=== PATIENT | female | born 1980 | race Caucasian/White ===

== ENCOUNTER 2016-08-21 04:30 | Emergency (ER) | payer SELFPAY ==
[~2016-08-21] VITALS: Ht 157.5 cm; Wt 68.5 kg
[~2016-08-21 04:30] MED LIST: ALPR-475 PO; BUSP10TA PO
== END 2016-08-21 06:07 | disposition home or self-care (01) ==
LOC: ED 05:39
DX: J01.00 Acute maxillary sinusitis, unspecified (principal); Z90.49 Acquired absence of other specified parts of digestive tract; E87.6 Hypokalemia
CPT/HCPCS: 99283

== ENCOUNTER 2018-02-18 18:17 | Emergency (ER) | payer MEDICAID ==
[~2018-02-18] VITALS: Ht 157.5 cm; Wt 75.5 kg
[2018-02-18 18:23] VITALS: BP 135/87
== END 2018-02-18 19:46 | disposition home or self-care (01) ==
LOC: ED 19:40
DX: J03.90 Acute tonsillitis, unspecified (principal); F17.200 Nicotine dependence, unspecified, uncomplicated
CPT/HCPCS: 87081; 87880; 99284

== ENCOUNTER 2018-04-20 22:54 | Emergency (ER) | payer MEDICAID ==
[~2018-04-20] VITALS: Ht 165.1 cm; Wt 75.2 kg
[2018-04-20 22:56] VITALS: BP 128/81
[2018-04-20] MEDS ORDERED: METHOCARBAMOL 750 MG TABLET PO ONE (23:30)
[2018-04-20] MEDS ORDERED: IBUPROFEN 200 MG TABLET PO ONE (23:30)
[2018-04-20] MEDS ORDERED: METHOCARBAMOL 750 MG TABLET ONE (23:43)
[2018-04-20] MEDS ORDERED: IBUPROFEN 800 MG TABLET ONE (23:43)
--- NOTE | 2018-04-20 23:53 | NUR ---
PT PRESENTS TO ED WITH C/O RIGHT EAR FULLNESS, AND RIGHT SIDED HEADACHE X 2 DAYS. NEURO INTACT. EQUAL CULTURIST BILATERALLY, NO DRIFT. PT A&OX4, RESPS EVEN AND UNLABORED. PT SPEAKING CLEARLY IN FULL SENTENCES. PT MEDICATED PER EMAR, TOLERATED WELL. EXAM INCLUDING EAR EXAM DONE BY EDMD. AWAITING DC PAPERWORK FROM MD AT THIS TIME.
--- NOTE | 2018-04-21 00:07 | NUR ---
PT GIVEN DC INSTRUCTIONS AND SCRIPT. PT EDUCATED REGARDING ROBAXAN AND MOTRIN RX. PT A&O, RESPS EVEN AND UNLABORED. NADN AT DC. PT AMB TO DC DESK WITH STEADY GAIT.
== END 2018-04-21 00:08 | disposition home or self-care (01) ==
LOC: ED 23:38
DX: G44.319 Acute post-traumatic headache, not intractable (principal); K21.9 Gastro-esophageal reflux disease without esophagitis; F17.200 Nicotine dependence, unspecified, uncomplicated
CPT/HCPCS: 99283

== ENCOUNTER 2018-07-21 05:21 | Emergency (ER) | payer MEDICAID ==
[~2018-07-21] VITALS: Ht 157.5 cm; Wt 75.0 kg
[2018-07-21 05:23] VITALS: BP 113/82
--- NOTE | 2018-07-21 06:12 | NUR ---
PT AMBULATED FROM LOBBY TO ROOM WITH STEADY GAIT.
[2018-07-21] MEDS ORDERED: hydrOXyzine 50MG TABLET PO ONE (06:30)
[2018-07-21] MEDS ORDERED: FAMOTIDINE 20 MG TABLET ONE (06:30)
[2018-07-21] MEDS ORDERED: FAMOTIDINE 20 MG TABLET PO ONE (06:30)
--- NOTE | 2018-07-21 06:51 | NUR ---
PT MEDICATED PER MAR.
--- NOTE | 2018-07-21 06:52 | NUR ---
REPORT OF PT TO LISBETH VO. ALL QUESTIONS ANSWERED
--- NOTE | 2018-07-21 07:01 | NUR ---
Pt resting on alexandr. ELSY. No needs expressed. Will dc pt when dc paperwork ready.
--- NOTE | 2018-07-21 07:33 | NUR ---
Patient given discharge instructions and they have confirmed that they understand the instructions. Patient ambulatory with steady gait. Pt left with discharge paperwork, prescription, and all personal belongings.
== END 2018-07-21 07:37 | disposition home or self-care (01) ==
LOC: ED 06:17
DX: L50.9 Urticaria, unspecified (principal); K21.9 Gastro-esophageal reflux disease without esophagitis; Z90.49 Acquired absence of other specified parts of digestive tract; Z90.89 Acquired absence of other organs; F17.210 Nicotine dependence, cigarettes, uncomplicated
CPT/HCPCS: 99284; J7512

== ENCOUNTER 2018-07-29 15:00 | Emergency (ER) | payer MEDICAID ==
[~2018-07-29] VITALS: Ht 157.5 cm; Wt 75.0 kg
[2018-07-29] MEDS ORDERED: CYCLOBENZAPRINE 10 MG TABLET ONE (16:22)
[2018-07-29] MEDS ORDERED: HYDROcodone/APAP 5/325 TABLET ONE (16:22)
[2018-07-29] MEDS ORDERED: IBUPROFEN 800 MG TABLET ONE (16:22)
[2018-07-29] MEDS ORDERED: HYDROcodone/APAP 5/325 TABLET PO ONE (16:30)
[2018-07-29] MEDS ORDERED: IBUPROFEN 800 MG TABLET PO ONE (16:30)
[2018-07-29] MEDS ORDERED: CYCLOBENZAPRINE 10 MG TABLET PO ONE (16:30)
[2018-07-29 17:04] VITALS: BP 124/84
--- NOTE | 2018-07-29 17:05 | NUR ---
Patient/Caregiver given discharge instructions and they have confirmed that they understand the instructions. Patient ambulatory with steady gait. PAIN 05/26
== END 2018-07-29 17:07 | disposition home or self-care (01) ==
LOC: ED 17:01
DX: S13.9XXA Sprain of joints and ligaments of unspecified parts of neck, initial encounter (principal); S23.9XXA Sprain of unspecified parts of thorax, initial encounter; S40.012A Contusion of left shoulder, initial encounter; K21.9 Gastro-esophageal reflux disease without esophagitis; Z90.89 Acquired absence of other organs; Z90.49 Acquired absence of other specified parts of digestive tract; V43.51XA Car driver injured in collision with sport utility vehicle in traffic accident, initial encounter; Y93.89 Activity, other specified; Y92.89 Other specified places as the place of occurrence of the external cause; Y99.8 Other external cause status
CPT/HCPCS: 72020; 72050; 99284

== ENCOUNTER 2018-09-24 12:59 | Emergency (ER) | payer MEDICAID ==
[~2018-09-24] VITALS: Ht 160 cm; Wt 74.3 kg
[2018-09-24] MEDS ORDERED: ONDANSETRON ODT 4 MG PO ONE (13:30)
[2018-09-24 13:52] LABS: ALBUMIN 3.4 g/dL (3.4-5.0); ANION GAP 6 mmol/L (5-15); CHLORIDE 109 mmol/L (98-107)
[2018-09-24 13:56] LABS: ALANINE AMINOTRANSFERASE 25 U/L (12-78); ALKALINE PHOSPHATASE 135 U/L (45-117); BILIRUBIN,TOTAL 0.4 mg/dL (0.2-1.0); CREATININE 0.65 mg/dL (0.55-1.02); TOTAL PROTEIN 7.6 g/dL (6.4-8.2)
[2018-09-24 14:09] LABS: BASOPHILS # (AUTO) 0.03 x10^3/uL (0-0.1); BASOPHILS % (AUTO) 1 % (0-1); EOSINOPHILS % (AUTO) 2 % (1-7); LYMPHOCYTES # (AUTO) 1.75 x10^3/uL (1-3.4); LYMPHOCYTES % (AUTO) 29 % (22-44); MD NO; MEAN CORPUSCULAR HEMOGLOBIN 23.7 pg (27.0-34.8); MEAN CORPUSCULAR HGB CONC 31.6 g/dL (32.4-35.8); MEAN CORPUSCULAR VOLUME 75.2 fL (80-100); MONOCYTES # (AUTO) 0.38 x10^3/uL (0.2-0.8); MONOCYTES % (AUTO) 6 % (2-9); NEUTROPHILS # (AUTO) 3.72 x10^3/uL (1.8-6.8); NEUTROPHILS % (AUTO) 62 % (42-75); PLATELET COUNT 375 x10^3/uL (130-400); RED BLOOD COUNT 4.71 x10^6/uL (3.82-5.3); RED CELL DISTRIBUTION WIDTH 16.5 % (9.6-15.2)
--- NOTE | 2018-09-24 15:00 | NUR ---
PT C/O DIARHHEA, N/V BEGINNING LAST NIGHT. PT DENEIS CP, SOB, TRAUMA. PT PLACED ON NIBP, CONT PULSE OX. ER PROVIDER AT BEDSIDE TO EVAL PT.
[2018-09-24] MEDS ORDERED: MORPHINE SULFATE 4 MG/ML, 1ML IVPush PRN (15:30)
[2018-09-24] MEDS ORDERED: SODIUM CHLORIDE 0.9% 1,000ML IVBOLUS ONE (15:30)
[2018-09-24] MEDS ORDERED: ONDANSETRON 2MG/ML, 2ML IVPush ONE (15:30)
[2018-09-24 15:47] LABS: % IRON SATURATION 5 % (20-55); IRON LEVEL 19 mcg/dL (50-170); TOTAL IRON BINDING CAPACITY 410 mcg/dL (250-450)
[2018-09-24] MEDS ORDERED: ONDANSETRON 2MG/ML, 2ML ONE (15:48)
[2018-09-24] MEDS ORDERED: FAMOTIDINE 20 MG/2 ML ONE (15:49)
[2018-09-24] MEDS ORDERED: LOPERAMIDE 2 MG CAPSULE ONE (15:49)
[2018-09-24] MEDS ORDERED: FAMOTIDINE 20 MG/2 ML IVPush ONE (16:00)
[2018-09-24] MEDS ORDERED: LOPERAMIDE 2 MG CAPSULE PO ONE (16:00)
[2018-09-24] MEDS ORDERED: MAALOX/HYOSCYAMINE/LIDOCAINE 45 ML BTL PO ONE (16:00)
[2018-09-24] MEDS ORDERED: MAALOX/HYOSCYAMINE/LIDOCAINE 45 ML BTL ONE (16:20)
--- NOTE | 2018-09-24 16:29 | NUR ---
PT MEDICATED PER MAR FOR NAUSEA, ABD PAIN. PER ERMD HE WILL BE DISCHARGING PT.
[2018-09-24] MEDS ORDERED: MORPHINE SULFATE 4 MG/ML, 1ML ONE (16:57)
--- NOTE | 2018-09-24 17:04 | NUR ---
PT GIVEN DISCHARGE INSTRUCTIONS, UNDERSTANDING STATED. PT REQUESTING TO FINSIH BOLUS AFTER BEING MEDICATED WITH MORPHINE FOR PAIN. WILL REASSESS.
[2018-09-24 17:24] VITALS: BP 100/45
--- NOTE | 2018-09-24 17:30 | NUR ---
PT GIVEN DISCHARGE INSTUCTIONS, UNDERSTANDING STATED. PIV REMOVED WITH TIP INTACT. PT ESCORTED TO CHECK OUT WITH ALL BELONGINGS VERIFIED ON DISCHARGE.
== END 2018-09-24 17:43 | disposition home or self-care (01) ==
LOC: ED 16:24
DX: K29.00 Acute gastritis without bleeding (principal); R10.84 Generalized abdominal pain; R10.13 Epigastric pain
CPT/HCPCS: 36415; 74021; 80053; 83540; 83550; 83690; 84703; 85025; 96361; 96374; 96375; 99284; J2270; J2405; J3490; J7030

== ENCOUNTER 2019-06-10 13:31 | Emergency (ER) | payer MEDICAID, OTHER ==
[~2019-06-10] VITALS: Ht 157.5 cm; Wt 69.5 kg
[~2019-06-10 13:31] MED LIST changes: -ALPR-475 PO; +ALPR0.5T7 PO
[2019-06-10] MEDS ORDERED: ONDANSETRON 2MG/ML, 2ML ONE (14:08)
[2019-06-10] MEDS ORDERED: KETOROLAC 30 MG/1 ML ONE (14:08)
[2019-06-10 14:22] LABS: RAPID INFLUENZA A POSITIVE (Negative); RAPID INFLUENZA B Negative (Negative)
--- NOTE | 2019-06-10 14:24 | NUR ---
BREAK RN: THIS IS A 38 YEAR OLD FEMALE WHO C/O OF WORSENING FEVER, BODY ACHES, COUGH, CHEST PAIN WITH BREATHING, DIZZINESS X 1 WEEK. PLACED PT ON CONTINOUS SPO2 AT 96% ON RA, CYCLE VS. PT STATES, "ALL OVER BODY PAIN IS AT 7/10". MEDICATED PER ORDERS, CALL LIGHT IN PLACE. PT VERBALIZED NO ADDITIONAL NEEDS AT THIS TIME.
[2019-06-10] MEDS ORDERED: ONDANSETRON 2MG/ML, 2ML IVPush ONE (14:30)
[2019-06-10] MEDS ORDERED: SODIUM CHLORIDE 0.9% 1,000ML IVBOLUS ONE (14:30)
[2019-06-10] MEDS ORDERED: SODIUM CHLORIDE FLUSH 10ML SYR IVF ONE (14:30)
[2019-06-10] MEDS ORDERED: KETOROLAC 30 MG/1 ML IVPush ONE (14:30)
[2019-06-10 15:09] VITALS: BP 96/50
== END 2019-06-10 15:38 | disposition home or self-care (01) ==
LOC: ED 15:30
DX: J10.1 Influenza due to other identified influenza virus with other respiratory manifestations (principal); R94.31 Abnormal electrocardiogram [ECG] [EKG]; R07.89 Other chest pain; R11.0 Nausea; M79.10 Myalgia, unspecified site; R42 Dizziness and giddiness; K21.9 Gastro-esophageal reflux disease without esophagitis
CPT/HCPCS: 71045; 87400; 93005; 96374; 96375; 99285; J1885; J2405; J7030

== ENCOUNTER 2019-11-06 20:35 | Emergency (ER) | payer OTHER ==
[~2019-11-06] VITALS: Ht 157.5 cm; Wt 69.8 kg
--- NOTE | 2019-11-06 21:15 | NUR ---
PT C/O H FOR ONE WEEK WITH NECK PAIN WORSE WHEN FLEXING HEAD UP AND DOWN. 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 CHART UP FOR MD, WAITING FOR ORDERS.
[2019-11-06] MEDS ORDERED: ONDANSETRON ODT 4 MG PO ONE (22:00)
--- NOTE | 2019-11-06 22:11 | NUR ---
REPORT TO DOC Mabry RN.
[2019-11-06 22:24] LABS: MEAN CORPUSCULAR HEMOGLOBIN 20.5 pg (27.0-34.8); MEAN CORPUSCULAR HGB CONC 30.6 g/dL (32.4-35.8); MEAN CORPUSCULAR VOLUME 66.9 fL (80-100); MEAN PLATELET VOLUME 8.9 fL (7.4-10.4); PLATELET COUNT 329 x10^3/uL (130-400); RED BLOOD COUNT 4.47 x10^6/uL (3.82-5.3); RED CELL DISTRIBUTION WIDTH 17.8 % (9.6-15.2)
[2019-11-06 22:25] LABS: ANION GAP 4 mmol/L (5-15); CALCIUM 8.4 mg/dL (8.5-10.1); CHLORIDE 110 mmol/L (98-107); CREATININE 0.57 mg/dL (0.55-1.02)
[2019-11-06 23:00] LABS: BASOPHILS # (AUTO) 0.09 x10^3/uL (0-0.1); BASOPHILS % (AUTO) 1 % (0-1); EOSINOPHILS # (AUTO) 0.01 x10^3/uL (0-0.4); EOSINOPHILS % (AUTO) 0 % (1-7); LYMPHOCYTES # (AUTO) 2.83 x10^3/uL (1-3.4); LYMPHOCYTES % (AUTO) 31 % (22-44); MD SCAN; MONOCYTES % (AUTO) 7 % (2-9); NEUTROPHILS # (AUTO) 5.54 x10^3/uL (1.8-6.8); NEUTROPHILS % (AUTO) 61 % (42-75)
[2019-11-06] MEDS ORDERED: DIAZEPAM 5 MG TABLET PO ONE (23:00)
[2019-11-06] MEDS ORDERED: ACETAMINOPHEN 500 MG TABLET PO ONE (23:00)
[2019-11-06] MEDS ORDERED: SODIUM CHLORIDE 0.9% 1,000ML IVBOLUS ONE (23:00)
[2019-11-06] MEDS ORDERED: KETOROLAC 30 MG/1 ML IVPush ONE (23:00)
[2019-11-06] MEDS ORDERED: DIAZEPAM 5 MG TABLET ONE (23:09)
[2019-11-06] MEDS ORDERED: ACETAMINOPHEN 500 MG TABLET ONE (23:09)
[2019-11-06] MEDS ORDERED: KETOROLAC 30 MG/1 ML ONE (23:09)
[2019-11-07 00:20] LABS: HCG UR SG 1.014 (1.003-1.030); MICROSCOPIC INDICATED
[2019-11-07 00:22] VITALS: BP 104/71
--- NOTE | 2019-11-07 00:54 | NUR ---
Patient given discharge instructions and they have confirmed that they understand the instructions. Patient ambulatory with steady gait.
== END 2019-11-07 00:56 | disposition home or self-care (01) ==
LOC: ED 22:04
DX: M54.2 Cervicalgia (principal); D50.9 Iron deficiency anemia, unspecified; R55 Syncope and collapse; R42 Dizziness and giddiness; R94.31 Abnormal electrocardiogram [ECG] [EKG]; K21.9 Gastro-esophageal reflux disease without esophagitis; E03.9 Hypothyroidism, unspecified; Z90.89 Acquired absence of other organs; Z90.49 Acquired absence of other specified parts of digestive tract
CPT/HCPCS: 36415; 80048; 81001; 81025; 85025; 93005; 96361; 96374; 99284; J1885; J7030; Q0162

== ENCOUNTER 2020-01-09 13:01 | Emergency (ER) | payer OTHER ==
[~2020-01-09] VITALS: Ht 157.5 cm; Wt 70.0 kg
[2020-01-09 13:04] VITALS: BP 128/77
--- NOTE | 2020-01-09 13:19 | NUR ---
PT WITH CHRONIC BACK PAIN SINCE OCTOBER, SEEN HERE AND ALSO MY HER PMD. PAIN WORSE OVER PAST FEW DAYS. NO CHANGE IN BOWEL OR BLADDER. PT ON BP AND SP02 MONITORING, CALL LIGHT W/I REACH. AWAITING ER PROVIDER.
--- NOTE | 2020-01-09 14:07 | NUR ---
Patient/Caregiver given discharge instructions and they have confirmed that they understand the instructions. Patient ambulatory with steady gait.
== END 2020-01-09 14:11 ==
LOC: ED 13:45
DX: S29.012A Strain of muscle and tendon of back wall of thorax, initial encounter (principal); K21.9 Gastro-esophageal reflux disease without esophagitis; E03.9 Hypothyroidism, unspecified; Z90.49 Acquired absence of other specified parts of digestive tract; X58.XXXA Exposure to other specified factors, initial encounter; Y93.89 Activity, other specified; Y92.89 Other specified places as the place of occurrence of the external cause; Y99.8 Other external cause status
CPT/HCPCS: 99283

== ENCOUNTER 2020-04-02 00:24 | Emergency (ER) | payer OTHER ==
[~2020-04-02] VITALS: Ht 157.5 cm; Wt 69.2 kg
[2020-04-02 00:29] VITALS: BP 114/66
[2020-04-02] MEDS ORDERED: KETOROLAC 30 MG/1 ML IM ONE (01:00)
[2020-04-02] MEDS ORDERED: KETOROLAC 30 MG/1 ML ONE (01:00)
--- NOTE | 2020-04-02 01:13 | NUR ---
PXR done, medicated per order. Will continue to monitor.
--- NOTE | 2020-04-02 01:25 | NUR ---
Waiting for dispo, pt in NAD. Reports minimal relief with toradol injection.
[2020-04-02] MEDS ORDERED: HYDROcodone/APAP 5/325 TABLET PO ONE (02:00)
[2020-04-02] MEDS ORDERED: LIDOCAINE 1%, 10ML INFIL ONE (02:00)
[2020-04-02] MEDS ORDERED: LIDOCAINE-MPF 1%, 5ML ONE (02:09)
[2020-04-02] MEDS ORDERED: HYDROcodone/APAP 5/325 TABLET ONE (02:10)
--- NOTE | 2020-04-02 02:21 | NUR ---
Set up for joint tap, pt medicated per order.
--- NOTE | 2020-04-02 02:55 | NUR ---
Crutch fit per size, demo instruct-pt returned demo appropriatly and safely. Pt given dc instruct, rx and note. Pt to fu with ortho, return to ER if worse or concerns.
== END 2020-04-02 02:59 | disposition home or self-care (01) ==
LOC: ED 01:12
DX: S93.401A Sprain of unspecified ligament of right ankle, initial encounter (principal); K21.9 Gastro-esophageal reflux disease without esophagitis; E03.9 Hypothyroidism, unspecified; Z90.49 Acquired absence of other specified parts of digestive tract; X58.XXXA Exposure to other specified factors, initial encounter; Y93.89 Activity, other specified; Y92.89 Other specified places as the place of occurrence of the external cause; Y99.8 Other external cause status
CPT/HCPCS: 20606; 73610; 96372; 99284; J1885; 20605

== ENCOUNTER 2020-05-23 20:28 | Emergency (ER) | payer OTHER ==
[~2020-05-23] VITALS: Ht 157.5 cm; Wt 65.0 kg
--- NOTE | 2020-05-23 20:49 | NUR ---
patient resting in bed in NAD. call ge in reach. safety maintained. daughter at bedside
[2020-05-23] MEDS ORDERED: OXYcodone/APAP 5/325MG TABLET PO ONE (21:00)
[2020-05-23] MEDS ORDERED: OXYcodone/APAP 5/325MG TABLET ONE (21:14)
[2020-05-23] MEDS ORDERED: CHOL400C11 PO (21:51)
[2020-05-23] MEDS ORDERED: CYCL10TA2 PO (21:51)
[2020-05-23] MEDS ORDERED: IRON1TAB60 PO (21:51)
--- NOTE | 2020-05-23 21:53 | NUR ---
patient back from [place]. call ge in reach. VS remain stable. safety maintained
--- NOTE | 2020-05-23 22:20 | NUR ---
discharge instructions reviewed with patient. no further questions. prescriptions handed directly to patient. VS remain stable. all personal belongings with patient on dc. no IV placed on this visit. daughter at bedside. patient requested wheelchair for departure
[2020-05-23 22:35] VITALS: BP 98/65
== END 2020-05-23 22:37 | disposition home or self-care (01) ==
LOC: ED 22:16
DX: M25.571 Pain in right ankle and joints of right foot (principal); R26.2 Difficulty in walking, not elsewhere classified; K21.9 Gastro-esophageal reflux disease without esophagitis; E03.9 Hypothyroidism, unspecified; Z87.891 Personal history of nicotine dependence
CPT/HCPCS: 99284